=== PATIENT | female | born 1985 | race Caucasian/White ===

== ENCOUNTER → 2024-01-22 14:30 | Outpatient (REF) | payer BC, SELFPAY | LOC: HWRAD 14:30 | PROVIDERS: ATTENDING PHYSICIAN Family Medicine | DX: M62.838 Other muscle spasm (principal); G24.9 Dystonia, unspecified; R29.890 Loss of height; Z82.62 Family history of osteoporosis | CPT/HCPCS: 70450; 77080 ==

== ENCOUNTER → 2024-01-23 16:25 | Outpatient (REF) | payer BC, SELFPAY | LOC: HWWDC 16:25 | PROVIDERS: ATTENDING PHYSICIAN Family Medicine | DX: Z12.31 Encounter for screening mammogram for malignant neoplasm of breast (principal) | CPT/HCPCS: 77063; 77067 ==

== ENCOUNTER → 2024-03-21 13:58 | Outpatient (REF) | payer BC, SELFPAY | LOC: HWRAD 13:58 | PROVIDERS: ATTENDING PHYSICIAN Family Medicine | DX: N28.9 Disorder of kidney and ureter, unspecified (principal) | CPT/HCPCS: 76770 ==